=== PATIENT | male | born 1990 | race Caucasian/White ===

== ENCOUNTER → 2019-01-24 | Outpatient (CLI) | payer OTHER ==
--- NOTE | 2019-01-24 17:22 | US ---
EXAMINATION TYPE: US scrotum with doppler. Grayscale and color Doppler Duplex imaging performed of kin dominguez scrotum. DATE OF EXAM: 01/24/2019 COMPARISON: NONE CLINICAL HISTORY: N50.819 TESTICULAR PAIN. Left testicular pain x 3 weeks and now radiating to left g roin; patient stated has had varicoceles since childhood EXAM MEASUREMENTS: TESTICLES: Right Testicle: 4.3 x 3.1 x 2.3 cm Left Testicle: 4.2 x 2.9 x 2.6 cm EPIDIDYMIS HEAD: Right Epididymis: 0.7 x 0.9 x 0.9 cm Left Epididymis: 1.1 x 1.5 x 1.0 cm Doppler performed to assess for testicular vascularity; good bilateral color flow and waveforms are s een. There is no evidence of testicular torsion. Right testicle: one microcalcification is noted. Left testicle: multiple microcalcifications are present Presence of hydroceles: noted in left scrotal sac = 1.2 x 1.5 x 1.6cm. Presence of varicoceles: yes, present in left scrotal sac and superiorly as dilated tortuous veins measured and greater than 0.25cm in Neutral and with Valsalva Maneuver. IMPRESSION: There is mild left-sided hydrocele. There is a large left-sided varicocele. No testicular torsion or mass.
== END | disposition home or self-care (01) ==
LOC: RADUSWWP 16:09
PROVIDERS: ATTEND Family Medicine
DX: N43.3 Hydrocele, unspecified (principal); I86.1 Scrotal varices
CPT/HCPCS: 76870; 93975

== ENCOUNTER → 2021-03-26 | Outpatient (CLI) | payer OTHER ==
--- NOTE | 2021-03-26 13:55 | MR ---
EXAMINATION TYPE: MR knee LT wo con DATE OF EXAM: 03/26/2021 COMPARISON: Outside left knee x-ray March 06, 2021. Prior MRI left knee 2010. HISTORY: Left inner knee pain, pain behind knee, painful kneecap, and swelling for 8 years. History o f left knee surgery. TECHNIQUE: Multiplanar, multisequence imaging of the left knee is performed without IV contrast. FINDINGS: MEDIAL MENISCUS: Anterior and posterior horns are intact without tear. LATERAL MENISCUS: Anterior and posterior horns are intact without tear. CRUCIATE LIGAMENTS: The anterior and posterior cruciate ligaments are intact and unremarkable. COLLATERAL LIGAMENTS: The medial collateral ligament and lateral collateral ligament complex are inta ct and unremarkable. EXTENSOR MECHANISM: Visualized quadriceps and patellar tendons are intact. EFFUSION: No significant suprapatellar joint effusion. POPLITEAL CYST: No popliteal/javed cyst. TRICOMPARTMENT SPACES: Tricompartment joint spaces are maintained. No significant spurring is seen. CARTILAGE: Tricompartmental articular cartilage is preserved. BONE MARROW SIGNAL: No focal abnormal marrow signal is appreciated. OTHER: No additional significant abnormality is appreciated. IMPRESSION: No meniscal or ligamentous tear is seen. Fairly unremarkable study.
== END | disposition home or self-care (01) ==
LOC: RADMRIMAIN 11:38
PROVIDERS: ATTEND Orthopaedic Surgery
DX: M25.562 Pain in left knee (principal); M79.89 Other specified soft tissue disorders

== ENCOUNTER 2021-06-05 22:04 | Emergency (ER) | payer OTHER ==
[2021-06-05 22:09] VITALS: TEMP 99
--- NOTE | 2021-06-05 22:41 | ED ---
Chest Pain HPI - General Chief Complaint: Chest Pain Stated Complaint: Chest Pain Time Seen by Provider: 06/05/21 22:17 Source: patient, RN notes reviewed, old records reviewed Mode of arrival: ambulatory Limitations: no limitations - History of Present Illness Initial Comments: This is a 30-year-old male to the ER today for evaluation patient's presenting today for evaluation regards to chest pain chest pain anterior rating to back about 3-4 days getting worse. Also some shortness of breath with history of asthma. Patient has had coronavirus time twice and recently had his first coronavirus vaccine. Patient denying any current fevers. No bodyaches and pains. Just chest pain shortness of breath and states does go back to his shoulder blades. MD Complaint: chest pain -: days(s) (5) Onset: during rest, during exertion Pain Location: substernal Pain Radiation: back Severity: moderate Severity scale (1-10): 5 Quality: tightness, heaviness, sharp Consistency: constant Improves With: nothing Worsens With: nothing Context: recent illness Anginal Symptoms: dyspnea Other Symptoms: palpitations Treatments Prior to Arrival: none - Related Data Home Medications Medication Instructions Recorded Confirmed Ibuprofen [Motrin] 800 mg PO TID-W/MEALS PRN 06/05/21 06/05/21 Allergies Allergy/AdvReac Type Severity Reaction Status Date / Time amoxicillin Allergy Rash/Hives Verified 06/05/21 23:04 Review of Systems ROS Statement: Those systems with pertinent positive or pertinent negative responses have been documented in the HPI. ROS Other: All systems not noted in ROS Statement are negative. EKG Findings - EKG Comments: EKG Findings:: EKG is normal sinus rhythm 85 IL 160 QRS 102 QTC 468 Past Medical History Past Medical History: Asthma, Cancer Additional Past Medical History / Comment(s): Hx skin cancer. Allergies History of Any Multi-Drug Resistant Organisms: None Reported Past Surgical History: Orthopedic Surgery Additional Past Surgical History / Comment(s): Lt knee scope. Past Anesthesia/Blood Transfusion Reactions: No Reported Reaction Past Psychological History: Depression Smoking Status: Former smoker Past Alcohol Use History: Occasional Past Drug Use History: None Reported - Past Family History Father Family Medical History: Cancer Additional Family Medical History / Comment(s): colon cancer. (Paternal Grandfather had cancer of eye) General Exam Limitations: no limitations General appearance: alert, in no apparent distress Head exam: Present: atraumatic, normocephalic, normal inspection Eye exam: Present: normal appearance, PERRL, EOMI. Absent: scleral icterus, conjunctival injection, periorbital swelling ENT exam: Present: normal exam, mucous membranes moist Neck exam: Present: normal inspection. Absent: tenderness, meningismus, lymphadenopathy Respiratory exam: Present: normal lung sounds bilaterally. Absent: respiratory distress, wheezes, rales, rhonchi, stridor Cardiovascular Exam: Present: regular rate, normal rhythm, normal heart sounds. Absent: systolic murmur, diastolic murmur, rubs, gallop, clicks GI/Abdominal exam: Present: soft, normal bowel sounds. Absent: distended, tenderness, guarding, rebound, rigid Extremities exam: Present: normal inspection, full ROM, normal capillary refill. Absent: tenderness, pedal edema, joint swelling, calf tenderness Back exam: Present: normal inspection Neurological exam: Present: alert, oriented X3, CN II-XII intact Psychiatric exam: Present: normal affect, normal mood Skin exam: Present: warm, dry, intact, normal color. 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 No specific findings or chest pain here in the ER. Patient encouraged motion Tylenol at home. Troponin negative labwork negative patient can be discharged home Disposition Clinical Impression: Atypical chest pain, Chest pain Disposition: HOME SELF-CARE Condition: Good Instructions (If sedation given, give patient instructions): Chest Pain (ED) Is patient prescribed a controlled substance at d/c from ED?: No Referrals: None,Stated [Primary Care Provider] - 1-2 days
[2021-06-05] MEDS ORDERED: SODIUM CHLORIDE 0.9% 1,000 ML IV STA (22:57)
[2021-06-05] MEDS ORDERED: DEXAMETHASONE SOD PHOSPHATE 10 MG/ML 1 ML VIAL IVP STA (22:58)
[2021-06-05] MEDS ORDERED: KETOROLAC 15 MG/ML 1 ML VIAL IVP STA (22:58)
--- NOTE | 2021-06-05 23:07 | XR ---
EXAMINATION TYPE: XR chest 2V DATE OF EXAM: 06/05/2021 COMPARISON: NONE HISTORY: Chest pain TECHNIQUE: 2 view FINDINGS: Heart and mediastinum are normal. Lungs are clear. Diaphragm is normal. Bony thorax is inta ct. There are chest leads. IMPRESSION: Normal chest.
[2021-06-05 23:19] LABS: Basophils # (A) 0.1 k/uL (0-0.2); Basophils % (A) 1 %; Eosinophils # (A) 0.7 k/uL (0-0.7); Eosinophils % (A) 8 %; HCT 42.8 % (39.0-53.0); HGB 14.2 gm/dL (13.0-17.5); Lymphocytes # (A) 3.1 k/uL (1.0-4.8); Lymphocytes % (A) 38 %; MCH 30.8 pg (25.0-35.0); MCHC 33.1 g/dL (31.0-37.0); MCV 92.9 fL (80.0-100.0); Mean Platelet Volume 7.1; Monocytes # (A) 0.5 k/uL (0-1.0); Monocytes % (A) 6 %; Neutrophils # (A) 3.6 k/uL (1.3-7.7); Neutrophils % (A) 44 %; Platelet Count 254 k/uL (150-450); RDW 11.8 % (11.5-15.5); WBC 8.1 k/uL (3.8-10.6)
[2021-06-05 23:28] LABS: ALT 26 U/L (4-49); AST 32 U/L (17-59); African American GFR (CKD) >90 (>60 ml/min/1.73 sqM); Albumin 4.4 g/dL (3.5-5.0); Alkaline Phosphatase 54 U/L (38-126); Anion Gap 9 mmol/L; Blood Urea Nitrogen 15 mg/dL (9-20); Calcium 9.6 mg/dL (8.4-10.2); Carbon Dioxide 27 mmol/L (22-30); Chloride 103 mmol/L (98-107); Glucose 101 mg/dL (74-99); Magnesium 2.2 mg/dL (1.6-2.3); Non-African American GFR(CKD) 88 (>60 ml/min/1.73 sqM); Phosphorus 3.6 mg/dL (2.5-4.5); Sodium 139 mmol/L (137-145); Total Bilirubin 0.2 mg/dL (0.2-1.3)
[2021-06-06 01:23] VITALS: BP 138/89; PULSE 77; RESP 16
== END 2021-06-06 01:23 | disposition home or self-care (01) ==
LOC: EC 22:04
DX: R07.89 Other chest pain (principal); J45.909 Unspecified asthma, uncomplicated; Z87.891 Personal history of nicotine dependence
CPT/HCPCS: 36415; 93005; 85379; 83880; 80053; 83605; 83735; 84100; 84484; 85025; 71046; 99285; 96374; 96375; 96361; J1100; J1885

== ENCOUNTER → 2022-07-07 | Outpatient (CLI) | payer OTHER ==
--- NOTE | 2022-07-07 14:28 | CT ---
EXAMINATION TYPE: CT soft tissue neck w con DATE OF EXAM: 07/07/2022 COMPARISON: HISTORY: Left neck swelling CT DLP: 677 mGycm CONTRAST: Patient injected with 70 mL of Isovue 300. TECHNIQUE: Axial images at 3 mm thick sections. Reconstructed images in the coronal plane and sagitt al plane are reviewed. FINDINGS: Limited CT sections are obtained the lung apices. The lung apices appear clear. CT neck: The torus tubarius and fossa of Rosenmuller are normal. 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 Air- fluid levels within the left maxillary sinus. Correlate for acute left maxillary sinusitis. Parotid glands appear normal and symmetrical. Submandibular glands, are normal. Parapharyngeal spac es are normal. No suspicious adenopathy is evident. The hypopharynx appears within normal limits. Vocal cord level appear symmetrical. Thyroid as visualized is normal. There is a small superior endplate spurring at C6. Prevertebral space is normal. At the level marked by the BB of the patient's swelling but no underlying suspicious masses evident. No suspicious adenopathy. This lies just below the level of the submandibular gland. IMPRESSIONS: 1. No suspicious abnormality at the level marked by the BB. 2. Clinical correlation recommended for acute left maxillary sinusitis.
== END | disposition home or self-care (01) ==
LOC: RADCTMAIN 13:26
PROVIDERS: ATTEND Family Medicine
DX: R22.0 Localized swelling, mass and lump, head (principal)
CPT/HCPCS: 70491; Q9967

== ENCOUNTER → 2023-01-14 | Outpatient (CLI) | payer OTHER ==
--- NOTE | 2023-01-16 21:43 | MR ---
EXAMINATION TYPE: MR lumbar spine wo con DATE OF EXAM: 01/14/2023 COMPARISON: None HISTORY: Low back pain, muscle weakness in legs and hips CONTRAST: 0 mL intravenous Gadavist. TECHNIQUE: Multiplanar, multisequence images of the lumbar spine were acquired. FINDINGS: Cord terminates at the L1 level. Disc heights are preserved. Vertebral body heights are preserved. Di sc hydration levels are normal. Facets are within normal limits. No significant disc bulge or focal d isc herniation is evident. No spinal canal stenosis or neural foraminal stenosis is present. L3-4: Mild broad-based disc bulges anterior thecal sac flattening without spinal canal stenosis. IMPRESSION: 1. Minimal disc bulge with anterior thecal sac flattening L3-4. 2. No acute changes
== END | disposition home or self-care (01) ==
LOC: RADMRIMAIN 21:15
PROVIDERS: ATTEND Family Medicine
DX: M51.16 Intervertebral disc disorders with radiculopathy, lumbar region (principal)
CPT/HCPCS: 72148

== ENCOUNTER → 2023-03-08 | Outpatient (CLI) | payer OTHER ==
--- NOTE | 2023-03-31 16:33 | P.CEMON ---
Event monitor shows sinus mechanism and episodes of sinus tachycardia up to 150 beats a minute, automatic capture When he complained of chest pressure or chest tightness monitor showed sinus mechanism in the 80s
== END | disposition home or self-care (01) ==
LOC: RADECHMAIN 12:35
PROVIDERS: ATTEND Family Medicine
DX: R00.0 Tachycardia, unspecified (principal); R00.2 Palpitations
CPT/HCPCS: 93270

== ENCOUNTER 2023-03-18 09:11 | Day surgery (SDC) | payer OTHER ==
[2023-03-16 15:18] VITALS: BMI 25.1
[~2023-03-18 09:11] MED LIST: ACETAMINOPHEN TAB 500 MG TAB PO PRN; HEPARIN SODIUM,PORCINE/PF 5,000 UNIT/0.5 ML SYRINGE SQ PRN; LIDOCAINE 1% (10MG/ML) FOR IV START INTRADERMA PRN; Pre Op ABX Message 1 EACH MISC MISCELLANE ONE
[2023-03-18] MEDS: LACTATED RINGERS 1,000 ML IV SCH ×2 (09:38→10:26)
[2023-03-18 09:42] VITALS: TEMP 98.3
[2023-03-18] MEDS ORDERED: PROPOFOL 10 MG/ML 20 ML VIAL IV ONE (10:27)
--- NOTE | 2023-03-18 10:53 | P.PCN ---
Date of Procedure: 03/18/23 Procedure(s) Performed: BRIEF HISTORY: Patient is a 32-year-old pleasant white male scheduled for an elective colonoscopy as a part of evaluation of intermittent rectal bleeding for the last 1 year duration. He also has family history of colon cancer that was diagnosed in his first cousin at age 35. PROCEDURE PERFORMED: Colonoscopy. PREOPERATIVE DIAGNOSIS: Intermittent rectal bleeding. IV sedation per Anesthesia. PROCEDURE: After informed consent was obtained, the patient, was brought into the endoscopy unit. IV sedation was administered by Anesthesia under continuous monitoring. Digital rectal examination was normal. Initially the Olympus CF-160 flexible video colonoscope was then inserted in the rectum, gradually advanced into the cecum without any difficulty. Careful examination was performed as the scope was gradually being withdrawn. Ileocecal valve and the appendiceal orifice were visualized and appeared normal. Prep was excellent. Mucosa of the cecum, ascending colon, transverse colon, descending colon, sigmoid colon, and rectum appeared normal. Retroflexion was performed in the rectum and small internal hemorrhoids were seen. The patient tolerated the procedure well. IMPRESSION: Small internal hemorrhoids No evidence of colitis or colorectal neoplasia RECOMMENDATIONS: Findings of this examination were discussed with the patient as well as his family. He was advised to be a high-fiber diet and fiber supplements a regular basis. Recommend repeat screening colonoscopy at age 43..
[2023-03-18] MEDS ORDERED: IV FLUID CONTINUATION 1,000 ML IV ONE (10:55)
[2023-03-18 11:11] VITALS: BP 118/86; PULSE 77; RESP 12
== END 2023-03-18 11:54 | disposition home or self-care (01) ==
LOC: ORWHC2ENDO 09:11
PROVIDERS: ATTEND Internal Medicine Gastroenterology
DX: K62.5 Hemorrhage of anus and rectum (principal); K64.8 Other hemorrhoids; J45.909 Unspecified asthma, uncomplicated; G35 Multiple sclerosis; K21.9 Gastro-esophageal reflux disease without esophagitis; F10.90 Alcohol use, unspecified, uncomplicated; Z80.0 Family history of malignant neoplasm of digestive organs; Z88.0 Allergy status to penicillin; Z79.811 Long term (current) use of aromatase inhibitors; Z79.2 Long term (current) use of antibiotics; Z79.899 Other long term (current) drug therapy; Z98.890 Other specified postprocedural states
CPT/HCPCS: 45378; J2704

== ENCOUNTER 2023-04-14 11:47 | Day surgery (SDC) | payer OTHER ==
[~2023-04-14 11:47] MED LIST changes: -ACETAMINOPHEN TAB 500 MG TAB PO PRN; -HEPARIN SODIUM,PORCINE/PF 5,000 UNIT/0.5 ML SYRINGE SQ PRN; -LIDOCAINE 1% (10MG/ML) FOR IV START INTRADERMA PRN; -Pre Op ABX Message 1 EACH MISC MISCELLANE ONE; +SODIUM CHLORIDE 0.9% 1,000 ML IV SCH
[2023-04-14] MEDS ORDERED: SODIUM CHLORIDE 0.9% 500 ML 500 ML IV ONE (12:10)
[2023-04-14 12:16] VITALS: RESP 16; TEMP 98.4
[2023-04-14 15:22] VITALS: BP 118/80; PULSE 88
--- NOTE | 2023-04-14 16:04 | P.EPPROC ---
- EP Procedure Note Electrophysiology Procedure Note: Diagnosis Recurrent syncope and presyncope The central EKG shows sinus rhythm normal [place] interval narrow QRS normal ST segments Tilt table test for protocol Baseline blood pressure 127/75 mmHg Baseline heart rate 78 beats a minute Patient was tilted upright at an angle of 70 per protocol Blood pressure remained within normal range Minimal increase in heart rate No symptoms Patient is laid supine at the end of the procedure Impression Normal. EKG Normal heart rate and blood pressure response to upright tilting
== END 2023-04-14 15:00 | disposition home or self-care (01) ==
LOC: CATHEP 11:47
PROVIDERS: ATTEND Internal Medicine Clinical Cardiac Electrophysiology
DX: R55 Syncope and collapse (principal); Z79.899 Other long term (current) drug therapy
CPT/HCPCS: 93660